=== PATIENT | female | born 2000 | race African-American/Black ===

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

== ENCOUNTER 2022-05-30 08:55 | Emergency (ER) | payer BC ==
[~2022-05-30] VITALS: Ht 170.2 cm; Wt 68.9 kg
[2022-05-30 09:01] VITALS: BP 125/70
--- NOTE | 2022-05-30 09:04 | NUR ---
AMBULATED TO BED 4
--- NOTE | 2022-05-30 09:12 | NUR ---
C/O MIGRAINE SINCE FRIDAY, PT STATES SHE RECENTLY SWITCH FROM IM AJOVY TO AIMOVIG THIS MONTH. SHE IS EXPERIENCING STIFFNESS AND TENDERNESS ON THE RIGHT SIDE OF HER NECK THAT SHE NEVER EXPERIENCED BEFORE. PT EXCEDRIN AND IBUPROFEN 2 TABS UNKNOWN DOSAGE WITH NO RELIEF. PMH: EPILEPSY, RIGHT HIP BONE SHAVE SX 2019 NKDA
[2022-05-30] MEDS: KETOROLAC 30 MG/ML VIAL IVP ONE (09:54)
--- NOTE | 2022-05-30 09:54 | NUR ---
IV STATR Addendum: 05/30/22 at 1012 by [email or web address] IV CHRIS TO Ino BAILEY 22G
[2022-05-30] MEDS: METOCLOPRAMIDE 10 MG/2 ML INJ VIAL IVP ONE (09:56)
[2022-05-30] MEDS: NACL 0.9% 1,000 ML IV ONE (09:57)
--- NOTE | 2022-05-30 10:14 | NUR ---
PT RESTING, TURNED OFF LIGHTS AND PROVIDED PT WITH GOWN TO COVER UP WITH.
--- NOTE | 2022-05-30 10:55 | NUR ---
PT STATED, "I'M FEELING A LITTLE BETTER BUT MIGRAINE IS STILL THERE."
[2022-05-30 11:16] VITALS: BP 120/78
--- NOTE | 2022-05-30 13:43 | NUR ---
ERMD AT BEDSIDE
[2022-05-30] MEDS ORDERED: PRED20TA5 PO (13:48)
--- NOTE | 2022-05-30 14:02 | NUR ---
Patient discharged with v/s stable. Written and verbal after care instructions given and explained. Patient alert, oriented and verbalized understanding of instructions. Carried with steady gait. All questions addressed prior to discharge. ID band removed. Patient advised to follow up with PMD. Rx of Prednisone given. Patient educated on indication of medication including possible reaction and side effects. Opportunity to ask questions provided and answered.
[2022-05-31] MEDS ORDERED: AZIT250T4 PO (14:33)
== END 2022-05-30 14:02 | disposition home or self-care (01) ==
LOC: MED 08:55
DX: G43.909 Migraine, unspecified, not intractable, without status migrainosus (principal)
CPT/HCPCS: 96361; 96374; 96375; 99284; J1885; J2765; J7030